=== PATIENT | female | born 1955 | race Caucasian/White ===

== ENCOUNTER 2024-05-23 07:03 | Emergency (ER) | payer MEDICARE ==
[~2024-05-23] VITALS: Ht 167.6 cm; Wt 62.0 kg
[2024-05-23] MEDS ORDERED: AMOX-580 PO (08:53)
[2024-05-23] MEDS: amox tr/potassium clavulanate 875/125mg TAB PO ONE (08:54)
[2024-05-23 09:47] VITALS: BP 132/74; PULSE 93; RESP 16; TEMP 98.9; O2SAT 98
== END 2024-05-23 09:51 | disposition home or self-care (01) ==
LOC: ER 07:04
DX: S60.812A Abrasion of left wrist, initial encounter (principal); L03.114 Cellulitis of left upper limb; W55.03XA Scratched by cat, initial encounter; Y93.89 Activity, other specified; Y92.89 Other specified places as the place of occurrence of the external cause; Y99.8 Other external cause status
CPT/HCPCS: 99283